=== PATIENT | female | born 1990 | race Caucasian/White ===

== ENCOUNTER 2021-03-30 08:44 | Emergency (ER) | payer OTHER, SELFPAY ==
[2021-03-30 08:50] VITALS: BP 147/79; PULSE 76; RESP 18; TEMP 36.6; O2SAT 98; BMI 30.9
--- NOTE | 2021-03-30 09:04 | ED.EXTPRO ---
HPI - Extremity Problem General Chief complaint: Extremity Injury, Upper Stated complaint: HAND PAIN Time Seen by Provider: 03/30/21 09:01 Source: patient Mode of arrival: ambulatory Limitations: no limitations History of Present Illness HPI Narrative: 30 y/o female presenting with 1 week of worsening right wrist and hand pain. She denies injury or trauma. 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 She reports shooting type pains in her hand and wrist that radiate up into her forearm. The pain makes it hard for her to grasp and make a fist. She has not been taking any medications for the pain. MD Complaint: extremity pain Onset (ago): week(s) (1) Pain Consistency: constant Location: right and upper extremity Severity scale (1-10): 8 Quality: sharp Radiation: proximal Relieving factors: immobilization and rest Exacerbating factors: range of motion and palpation Associated symptoms: denies other symptoms Related Data Previous Rx's Medication Instructions Recorded naproxen 500 mg PO BID PRN #20 tab 03/30/21 Allergies Allergy/AdvReac Type Severity Reaction Status Date / Time No Known Allergies Allergy Unknown Unverified 06/20/20 17:23 Review of Systems Review of Systems: Constitutional: No Fever, No Chills Cardiovascular: No Chest Pain, No SOB, No Edema Musculoskeletal: + joint pain, No Myalgias Skin: No Skin Lesions, No rash Neuro: + Weakness, No Numbness, No Dizziness, No Headache Heme/Lymph: No Bruising, No Lymphadenopathy PMFSH Past Medical History Attestation statement: The following information was validated with the patient. Social History Social History Advance Directives: No Advance Directives Information Provided: No Patient : No Physical Exam Vital Signs: Vital Signs: Last Vital Signs Temp 97.9 F 03/30/21 08:50 Pulse 76 03/30/21 08:50 Resp 17 03/30/21 09:27 BP 147/79 H 03/30/21 08:50 Pulse Ox 98 03/30/21 08:50 Body Mass Index 30.9 Appearance: Alert. Oriented X3. No acute distress. HEENT: normal inspection CVS: Normal heart rate and rhythm. Pulses normal. Respiratory: No respiratory distress. Skin: Skin warm and dry. Normal skin color. Normal skin turgor. No rashes. Extremities: right wrist and hand with normal inspection, dorsal hand with tenderness medially, pain with movement of the wrist and hand grasp, sensation intact. 2+ radial pulse. Neuro: Oriented X 3. No motor deficit. No sensory deficit. Course Course Course Narrative: 30 y/o female presenting with right hand and wrist pain no trauma but overuse with repetitive movements on her job. Her symptoms are most likely related to carpal tunnel syndrome. Will place in cock-up wrist velco splint, treat with NSAIDS and refer to Hand for possible injections vs surgical decompression if no improvement with conservative treatments. Patient encouraged to rest, ice and elevate her hand. Stable for d/c home with outpatient follow up. Discharge Plan Discharge Clinical Impression: Acute wrist pain Qualifiers: Laterality: right Qualified Code(s): M25.531 - Pain in right wrist Patient Disposition: Home, Self-Care Instructions: Wrist Injury (ED) Additional Instructions: Wear the wrist splint as needed for comfort and support. Recommend wearing it every night when you sleep Take the prescribed anti-inflammatory pain medication as needed Elevate your hand when possible and use ice several times per day Rest and limit use of your right hand Recommend following up with Hand Specialist to see if you are a candidate for steroid injections or surgical treatment Prescriptions: New naproxen 500 mg tablet 500 mg PO BID PRN (Reason: pain) Qty: 20 RF: 0 Referrals: Saniya Moody MD [Physician] - 1 week (right wrist pain) Stand Alone Forms: Work/School Release Interventions: ED Discharge Assessment Last Done: 03/30/21 09:30 Discharge Date/Time: 03/30/21 09:30
[2021-03-30] MEDS: Ketorolac Tromethamine 30 MG/ML VIAL IM (09:21)
[2021-03-30 09:27] VITALS: RESP 17
== END 2021-03-30 09:30 | disposition home or self-care (01) ==
PROVIDERS: Emergency Provider Emergency Medicine
DX: M25.531 Pain in right wrist (principal); M79.641 Pain in right hand
CPT/HCPCS: 96372; 99284; J1885

== ENCOUNTER 2021-04-16 08:05 | Outpatient (REF) | payer OTHER, SELFPAY | END 2021-04-16 08:06 | disposition home or self-care (01) | LOC: HO.HOSX 08:05 | PROVIDERS: Visit Provider Physician Assistant | DX: Z13.89 Encounter for screening for other disorder (principal) ==

== ENCOUNTER 2021-04-25 08:05 | Outpatient (REF) | payer OTHER, SELFPAY ==
--- NOTE | ~2021-04-25 | XR_ITS ---
EXAMINATION: XR WRIST, RIGHT CLINICAL INFORMATION: Pain in right wrist. COMPARISON: None TECHNIQUE: PA, lateral, and oblique views of the right wrist. FINDINGS: The bones and soft tissues are normal. No fracture. Alignment is anatomic with normal joint spaces. No erosions or abnormal soft tissue calcifications. XR/XR wrist RT min 3V IMPRESSION: Unremarkable right wrist exam.
== END 2021-04-25 08:06 | disposition home or self-care (01) ==
LOC: HO.HOSX 08:05
PROVIDERS: Visit Provider Physician Assistant
DX: M25.531 Pain in right wrist (principal)
CPT/HCPCS: 73110; 99202

== ENCOUNTER 2021-09-07 18:47 | Emergency (ER) | payer OTHER, SELFPAY ==
[2021-09-07 20:23] VITALS: BP 131/67; PULSE 77; RESP 16; TEMP 35.9; O2SAT 100; BMI 32.8
[2021-09-07 22:00] VITALS: BP 132/70; PULSE 80; RESP 16; TEMP 36.9; O2SAT 98
--- NOTE | 2021-09-07 22:26 | ED_ITS ---
HPI - Back Pain/Injury General Chief Complaint: Back Pain/Injury Stated Complaint: Back pain Time Seen by Provider: 09/07/21 21:40 Source: patient Mode of arrival: ambulatory Limitations: no limitations History of Present Illness HPI Narrative: 31-year-old female who presents emergency department for evaluation of lower back pain with pain radiating down to her right leg. Patient states that the pain started approximately 5 days prior. She states that she was in her car for about a [address] she got out of her car she had pain across her lower back. She states since that time she has had a constant pain across her lower back which she describes as a pulling sensation. The pain is 8/10 at its worst. The pain does radiate down her right leg all the way to her foot. She denies numbness or weakness of her right leg. She denies loss of bowel or bladder control. She denied fever or chills. The patient states she has been taking Tylenol for the pain without relief. Related Data Previous Rx's Medication Instructions Recorded naproxen 500 mg tablet 500 mg PO BID PRN #20 tab 03/30/21 cyclobenzaprine 10 mg tablet 10 mg PO TID PRN #20 tab 09/07/21 prednisone 20 mg tablet 60 mg PO DAILY 7 Days #21 tab 09/07/21 Allergies Allergy/AdvReac Type Severity Reaction Status Date / Time No Known Allergies Allergy Unknown Unverified 06/20/20 17:23 Review of Systems Review of Systems: Yes all other systems are reviewed and are negative [facility] Past Medical History [facility] Narrative: Social history: The patient is a former smoker, she stop smoking 1 year prior. She smoked 1/2 pack cigarettes per day times 15 years. She denies alcohol use. She denies drug use. 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 Physical Exam Vital Signs: Vital Signs: Last Vital Signs Temp 98.4 F 09/07/21 22:00 Pulse 80 09/07/21 22:00 Resp 16 09/07/21 22:00 BP 132/70 09/07/21 22:00 Pulse Ox 98 09/07/21 22:00 BMI result Body Mass Index 32.8 Const: General: cooperative and no acute distress Orientation/conscious ness: oriented to person and oriented to place Limitations: no limitations HENMT: Head: Yes normal to inspection, Yes normocephalic and Yes atraumatic Ears: external ears normal General nose exam: Normal external nose present Face and sinus: Yes normal facial exam Mouth: Normal oral and palatal mucosa present Throat: Yes posterior oropharynx normal Eyes: General: appearance normal, both eyes and all related structures Pupils: Equal, round and reactive pupils present Neck: Neck: Yes normal visual inspection, Yes no lymphadenopathy, Yes trachea midline and Yes supple Chest: Chest palpation & inspection: normal inspection of the chest and normal palpation of entire chest wall Resp: Effort & Inspection: normal respiratory effort and able to speak in complete sentences Auscultation: clear to auscultation bilaterally Cardio: Rate: regular rate Rhythm: regular rhythm Heart sounds: S1 normal heart sound present, S2 normal heart sound present and no murmurs GI: Inspection: Yes normal to inspection Palpation (GI): Soft to palpation, nontender and no guarding Auscultation: normal bowel sounds Back/Spine/Pelvis: Other: Patient has tenderness with palpation of her paraspinal muscles in the lumbar sacral region, there is no vertebral spinal tenderness, she has negative straight leg raises bilaterally, she has normal strength in her lower extremities, she is able to walk without any difficulty, she is not able to bend secondary to spasm of her lower back muscles. Skin: General skin exam: no rashes or lesions noted Neuro: General: oriented to person and oriented to place Cranial nerves: Yes CN's II-XII intact bilaterally and Yes Equal, round and reactive pupils p resent Cognition (Neuro): normal cognition Motor exam (neuro): 5/5 motor strength present throughout Extrem: General: Yes normal to inspection Psych: Appearance: grossly normal Speech and movement: Normal speech and movement present Affect: normal affect Attitude: cooperative Thought process: Normal thought process present Thought content: Normal thought content present Course Course Course Narrative: 31-year-old female who presents emergency department for evaluation of lower back pain x5 days with pain that radiates down her right leg. She has been taking Tylenol without relief. Physical examination revealed normal vital signs. The patient's exam did reveal tenderness palpation of the paraspinal muscles in lumbar sacral area bilaterally with a nonfocal neurologic exam. The patient's presentation is consistent with lumbar strain with radiculopathy. Patient was treated with prednisone 60 mg orally and Tylenol 975 mg orally. She was started on prednisone 60 mg once a day for 1 week, cyclobenzaprine 10 mg 3 times a day for pain and spasm and Tylenol 975 mg every 6 hours as needed for pain. She was given printed and verbal instructions and discharged home. Discharge Plan Discharge Clinical Impression: Lumbar radiculopathy Strain of lumbar region Qualifiers: Encounter type: initial encounter Qualified Code(s): S39.012A - Strain of muscle, fascia and tendon of lower back, initial encounter Patient Disposition: Home, Self-Care Instructions: Lumbar Radiculopathy (ED) Additional Instructions: Back Pain Discharge Instructions: Prednisone 20 mg pills, 3 pills once a day for 7 days. This is a strong anti- inflammatory pain medication. Do not take any [id number] anti- inflammatory pain medications while you taking prednisone such as ibuprofen, Motrin, Advil, Aleve, naproxen. Take Tylenol (acetaminophen) 500 mg pills, 2 pills every 6 hours as needed for pain. Take Flexeril (cyclobenzaprine) 10 mg pills, 1 pill every 8 hours as needed for pain or muscle spasm. This is a prescription medication. This medication will make you sleepy, therefore do not drive or work while taking this medication. Apply ice for 15 minutes to the area that hurts on your back, then apply a heating a pad on low for 15 minutes. Do this 4-6 times a day to help reduce the pain in your back. Continue with normal activities as tolerated since staying in bed and not moving around will make your pain worse. Please return to the Emergency Department or see your doctor immediately if your symptoms get worse or if you develop any new symptoms that are concerning you. Follow up with your doctor in 2 day. Please read the other printed discharge instructions on back pain. Prescriptions: New cyclobenzaprine 10 mg tablet 10 mg PO TID PRN (Reason: muscle pain or spasm) Qty: 20 RF: 0 prednisone 20 mg tablet 60 mg PO DAILY 7 Days Qty: 21 RF: 0 No Action naproxen 500 mg tablet 500 mg PO BID PRN (Reason: pain) Qty: 20 RF: 0
[2021-09-07] MEDS: predniSONE 20 MG TABLET 60 MG PO (23:03)
[2021-09-07] MEDS: Acetaminophen 325 MG TABLET 975 MG PO (23:03)
--- NOTE | 2021-09-07 23:08 | PC.NURSE ---
medicated per Mar. Reviewed discharge instruction. Education on medication. Referral sheet for primary care providers.
== END 2021-09-07 23:10 | disposition home or self-care (01) ==
PROVIDERS: Emergency Provider Emergency Medicine Emergency Medical Services
DX: S39.012A Strain of muscle, fascia and tendon of lower back, initial encounter (principal); X58.XXXA Exposure to other specified factors, initial encounter; Y93.9 Activity, unspecified; Y92.9 Unspecified place or not applicable; Y99.9 Unspecified external cause status
CPT/HCPCS: 99282; 99283; 99284

== ENCOUNTER 2024-05-18 01:06 | Inpatient (IN) | payer OTHER, SELFPAY ==
[2024-05-18 01:18] VITALS: BP 137/83; PULSE 94; RESP 16; TEMP 36.2; O2SAT 98; BMI 33.3
[2024-05-18 01:20] VITALS: BP 137/83; PULSE 94; RESP 18; TEMP 36.2; O2SAT 94
[2024-05-18 01:57] LABS: Appearance Urine Clear; Color Urine Yellow; Glucose Urine UA Negative (Negative); Leukocyte Esterase Urine Negative (Negative); Nitrite Urine Negative (Negative); Urine Blood Negative (Negative); Urine Ketones Negative (Negative); Urine Protein Negative (Neg-Trace)
[2024-05-18 01:59] LABS: UPreg QC Valid YES; Urine Pregnancy NEGATIVE (NEGATIVE)
[2024-05-18 02:02] LABS: Bacteria Urine None Seen (None Seen); Hyaline Casts Urine 0-2 /LPF (0-2); RBC Urine 0-2 /HPF (0-2); Squamous Epithelial Cell Urine 0-2 /HPF (0-2); WBC Urine 0-5 /HPF (0-5)
[2024-05-18 02:20] LABS: Amphetamine Screen Urine Not Detected (Not Detect); Barbiturates, Urine Not Detected (Not Detect); Benzodiazepines Screen Urine Not Detected (Not Detect); Buprenorphine Scr Not Detected (Not Detect); Cannabinoid Screen Urine POSITIVE (Not Detect); Cocaine Screen Urine Not Detected (Not Detect); Fentanyl, urine Not Detected (Not Detect); Methadone Screen, Urine Not Detected (Not Detect); Opiate Screen Urine Not Detected (Not Detect); Oxycodone Screen Urine Not Detected (Not Detect); Phencyclidine Screen Urine Not Detected (Not Detect)
--- NOTE | 2024-05-18 03:55 | ED.PSYCH ---
HPI - Psych General Chief Complaint: Psychiatric Symptoms Stated Complaint: section 12 si Time Seen by Provider: 05/18/24 03:48 Source: EMS Mode of arrival: EMS Limitations: other History of Present Illness ED Provider: Dr. Leyla Tony HPI Narrative: Patient comes to the emergency room by ambulance. Seems that somebody called [facility], they picked up the patient and brought her to the emergency room. Patient is calm but not answering any questions. Patient states that somebody brought her here, states she wants her belongings and her pillow. Patient agreeable to get blood work. Otherwise patient not offering any more information. Patient states that she wants to talk to somebody from the care team, did not disclose any further information Related Data Previous Rx's ?Medication ?Instructions ?Recorded naproxen 500 mg tablet 500 mg PO BID PRN pain #20 tabs 03/30/21 cyclobenzaprine 10 mg tablet 10 mg PO TID PRN muscle pain or 09/07/21 spasm #20 tabs prednisone 20 mg tablet 60 mg (3 x 20 mg) PO DAILY 7 days 09/07/21 #21 tabs Allergies Allergy/AdvReac Type Severity Reaction Status Date / Time No Known Allergies Allergy Unknown Unverified 05/18/24 01:22 Review of Systems Review of Systems: Yes Other [facility] Social History Social History Patient Tobacco Use Status: Never used Tobacco Advance Directives: No Advance Directives Information Provided: No Do you have a plan to hurt others: No Plan Current occupational status: employed Current occupation: rt handed/ order packer in factory Physical Exam Vital Signs: Vital Signs: Last Vital Signs Temp 97.1 F 05/18/24 01:20 Pulse 94 05/18/24 01:20 Resp 18 05/18/24 01:20 BP 137/83 05/18/24 01:20 Pulse Ox 94 05/18/24 01:20 O2 Del Method Room Air 05/18/24 01:20 BMI result Body Mass Index 33.3 Const: Other: Appearance: Alert. No acute distress, sitting in the corner of her room on the floor Eyes: Pupils equal, round and reactive to light. ENT: Pharynx normal. Neck: Normal inspection. Neck supple. No lymph nodes noted. No crepitus CVS: Normal heart rate and rhythm. Pulses normal. Normal S1 and S2 Respiratory: No respiratory distress. Breath sounds normal. No Wheezing. No rales Abdomen: Soft and nontender. No rigidity. No distention. Skin: Skin warm and dry. Normal skin color. Normal skin turgor. Extremities: No lower extremity edema. No Lacerations. No Rash Neuro: Cranial nerves 2-12 grossly intact Psych: calm, flat affect, answering questions but not making much sense. Course Course Course Narrative: Patient agreeable blood work done. -patient was Section 12 in the community -physician observation started at 04:00 -care team consult pending Medical Decision Making Differential Diagnosis Differential Diagnoses: The differential diagnosis associated with the presentation includes (Anxiety, depression, polysubstance abuse) Admission/Observation Consideration of admission/observation: Escalation of care including admission/observation considered (Patient is under physician observation waiting to be seen by the care team.) Lab Data Labs: Lab Results 05/18/24 Range/Units 01:49 Urine Color Yellow Urine Appearance Clear Urine pH 6.0 (5.0-9.0) Ur Specific [place] 1.020 (1.005-1.025) Urine Protein Negative (Neg-Trace) mg/dL Urine Glucose (UA) Negative (Negative) mg/dL Urine Ketones Negative (Negative) mg/dL Urine Blood Negative (Negative) Urine Nitrite Negative (Negative) Ur Leukocyte Esterase Negative (Negative) Urine RBC 0-2 (0-2) /HPF Urine WBC 0-5 (0-5) /HPF Ur Squamous Epith Cells 0-2 (0-2) /HPF Urine Bacteria None Seen (None Seen) Hyaline Casts 0-2 (0-2) /LPF Urine Test NEGATIVE (NEGATIVE) Urine Opiates Screen Not Detected (Not Detect) Ur Buprenorphine Scrn Not Detected (Not Detect) ng/mL Ur Oxycodone Screen Not Detected (Not Detect) ng/mL Urine Methadone Screen Not Detected (Not Detect) ng/mL Urine Fentanyl Screen Not Detected (Not Detect) Ur Barbiturates Screen Not Detected (Not Detect) Ur Phencyclidine Scrn Not Detected (Not Detect) Ur Amphetamines Screen Not Detected (Not Detect) U Benzodiazepines Scrn Not Detected (Not Detect) Urine Cocaine Screen Not Detected (Not Detect) U Marijuana (THC) Screen POSITIVE H (Not Detect) Discharge Plan Discharge Clinical Impression: Flat affect Patient Disposition: Still a Patient Prescriptions: No Action naproxen 500 mg tablet 500 mg PO BID PRN (Reason: pain) Qty: 20 0RF cyclobenzaprine 10 mg tablet 10 mg PO TID PRN (Reason: muscle pain or spasm) Qty: 20 0RF prednisone 20 mg tablet 60 mg PO DAILY 7 Days Qty: 21 0RF Interventions: Gosper-Suicide Risk Severity Scale Last Done: 05/18/24 02:46 Print Language: Guinean
[2024-05-18 04:06] LABS: MANUAL DIFF FLAG NO
[2024-05-18 04:08] LABS: Basophils Absolute Auto 0.1 X10*3/uL (0.0-0.2); Basophils Percent Auto 0.5 % (0-2); Eosinophils Absolute Auto 0.1 X10*3/uL (0.0-0.4); Eosinophils Percent Auto 1.2 % (0-4); Hematocrit 39.9 % (37.0-47.0); Hemoglobin 13.5 g/dl (12.0-16.0); Imm Gran Abs Auto 0.03 X10*3/uL (0.00-0.03); Imm Gran Pct Auto 0.3 % (0.0-0.4); Lymphocytes Absolute Auto 3.5 X10*3/uL (1.2-4.9); Lymphocytes Percent Auto 33.6 % (20-40); Mean Corpuscular HGB Conc 33.8 g/dl (31.0-35.0); Mean Corpuscular Hemoglobin 26.9 pg (27.0-33.0); Mean Corpuscular Volume 79.5 fL (80.0-98.0); Mean Platelet Volume 12.5 fL (9.4-12.3); Monocytes Absolute Auto 0.7 X10*3/uL (0.1-1.2); Monocytes Percent Auto 6.4 % (2-11); Neutrophils Absolute Auto 6.1 x10*3/uL (2.0-8.3); Platelet Count 254 X10*3/uL (160-400); Red Blood Count 5.02 X10*6/uL (4.20-5.50); Red Cell Distribution Width 12.7 % (11.0-16.0); White Blood Count 10.5 X10*3/uL (4.8-10.8)
[2024-05-18 04:32] LABS: Alanine Aminotransferase 14 U/L (0-31); Albumin Level 4.4 g/dL (3.5-5.0); Alkaline Phosphatase 44 U/L (39-117); Anion Gap 11 (12-20); Aspartate Amino Transferase 16 U/L (5-31); Bilirubin Direct 0.1 mg/dL (0.0-0.5); Bilirubin Total 0.3 mg/dL (0.0-1.0); Blood Urea Nitrogen 11 mg/dL (9-16); Calcium 9.2 mg/dL (8.4-10.2); Carbon Dioxide 26 mmol/L (22-29); Chloride 106 mmol/L (96-108); Creatinine Clr Calc Pharmacy 95.8; Estimated Glomerular Filt Rate > 60; Glucose Random 111 mg/dL (60-115); Potassium 4.3 mmol/L (3.3-5.1); Sodium 139 mmol/L (135-145); Total Protein 7.7 g/dL (6.5-8.0)
[2024-05-18 04:49] LABS: Ethanol < 10 mg/dL; HCG Quantitative < 2 mIU/mL
--- NOTE | 2024-05-18 05:15 | PC.NURSE ---
patient redirected and asked to get down off of her bed which she recently began standing on. i encouraged her that her ability to follow directions would reflect well on her when people came to speak to her this morning. patient responded she wanted her pillow from home which i told her could not be given because of contraband and insects. patient did not comply.
--- NOTE | 2024-05-18 05:52 | PC.NURSE ---
patient soon thereafter being redirected in her room later stood on desk and was redirectd down which she did somewhat readily. she thereafter went into rest room and seemingly washed herself for a few minutes and soon thereafter was found naked in bathroom provided new clothing and shortly thereafter went back to room and stood in corner.
--- NOTE | 2024-05-18 08:29 | PC.NURSE ---
patient sitting on floor in room, seen by the care team. cooperative and responding to questions at this time.
[2024-05-18 09:01] VITALS: BP 148/87; PULSE 107; RESP 18; TEMP 36.3; O2SAT 99
--- NOTE | 2024-05-18 10:00 | PC.NURSE ---
attempted to complete med rec for patient, states she does not take any medications and does not have a doctor/pharmacy at this time.
--- NOTE | 2024-05-18 13:37 | PC.NURSE ---
Pt ambulatory with a steady gait, utilizing shower at this time.
--- NOTE | 2024-05-18 15:24 | PC.NURSE ---
patient requesting to speak with care team. this RN attempting to explain patient is a section 12 and cannot leave, patient states that she does not feel she is receiving any care at this time. offered medication to help her calm down, patient refused. asking to be transferred to different hospital. remains in room with visitors at this time.
--- NOTE | 2024-05-18 16:55 | PC.NURSE ---
care team meeting with patient at this time, report given to m3
[2024-05-18 20:30] VITALS: BP 140/86; PULSE 66; RESP 16; TEMP 36.4; O2SAT 100
[2024-05-18 22:43] VITALS: BMI 29.5
--- NOTE | 2024-05-19 00:51 | PC.ADMIT ---
MOMO IS A 34 Y/O FEMALE WHO ARRIVED @ THE ED VIA AMBULANCE ON A SECTION 12 BY POLICE POST REPORTING SI TO CRISIS. SHE HAS A HX OF IPLOC AND SUICIDE ATTEMPTS. DIAGNOSIS BIPOLAR D/O. ADMITTED ON A 12B TO UNIT VIA W/C @ 2014. RECENT STRESSES/LIFE CHANGES INCLUDES UNEMPLOYMENT AND HOMELESSNESS. TOX SCREEN POSITIVE FOR MARIJUANA. MOMO IS A/O X 3, AD-LISE WITH STEADY GAIT, NO FALL HX, PRESENTED CALM BUT IRRITATED THAT SHE IS ON THE UNIT, VERBALIZED THAT SHE WAS LIED TO AND WANTS TO BE LEAVE. I'M NOT ACCEPTING NO TYPE OF CARE FROM THIS HOSPITAL. I'M NOT GONNA HURT MYSELF, I'M NOT GONNA HURT ANYBODY. I TOLD THEM I WANT OP SERVICES. SOMEONE TO TALK TOO INITIALLY DECLINED SKIN/SAFETY ASSESSMENT, SO SHE WAS PLACED ON 1:1, REQUESTED TO TAKE SHOWER AND ASSESSMENT COMPLETED AT THAT TIME, ORDER CHANGED TO 5 MIN ULB. DECLINED TO COMPLETE ADMISSION ASSESSMENT, I'M NOT SIGNING NOTHING. I'M NOT DOING NO TREATMENT HERE. VERBALIZED SHE IS SAFE WITH NO THOUGHTS OF SELF HARM, DENIED [facility]. NO PRESCRIBED HS MEDS, DECLINED SNACKS/FLUID. PATIENT PLACED HER MATTRESS ON THE FLOOR IN THE CORNER NEAR ASSIGNED ROOM DOOR, LAYING DOWN WITH COVERS OVER HER HEAD.
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
[2024-05-19 19:37] VITALS: BP 118/57; PULSE 68; RESP 18; TEMP 37; O2SAT 99
--- NOTE | 2024-05-20 17:28 | HO.PSYCHPN ---
Subjective Subjective Date of Service: 05/20/24 Reason For Visit: section 12 si Interim History: stated she had no questions or complaints for MD and did not wish to speak. per staff, 12b up 05/23. flat, withdrawn, guarded. ate 50% of her lunch. no breakfast. uncooperative. not engaging. Mental Status Exam Mental Status Exam Narrative: under covers on mattress on floor. not cooperative. no PMA/PMR. speech soft, terse. thoughts linear and logical. affect constricted, normo-intense, non-labile. mood, SI/HI/AVH not expressed. Diagnostics Vital Signs (24Hr): Vital Signs - 24 hr 05/19/24 19:37 Temperature 98.6 F Pulse Rate 68 Respiratory Rate 18 Blood Pressure 118/57 L Pulse Oximetry 99 Oxygen Delivery Method Room Air BMI result Body Mass Index 29.5 Labs 05/18/24 04:00 05/18/24 04:00 Medications Medications Current Medications Acetaminophen (Acetaminophen 325 Mg Tablet) 650 mg PO Q6H PRN PRN Reason: Headache/Pain Mild Scale (1-3) Al Hydroxide/Mg Hydroxide (Magnesium Hydrox/Alum Hydrox 30 Ml Oral.Susp) 30 ml PO Q6H PRN PRN Reason: Heartburn/Nausea Hydroxyzine HCl (Hydroxyzine Hcl 25 Mg Tablet) 25 mg PO Q6H PRN PRN Reason: Anxiety Magnesium Hydroxide (Milk Of Magnesia 30 Ml Oral.Susp) 30 ml PO DAILY PRN PRN Reason: Constipation Nicotine Polacrilex (Nicotine Polacrilex 2 Mg Gum) 4 mg BUCCAL Q2H PRN PRN Reason: Nicotine Cravings Quetiapine Fumarate (Quetiapine Fumarate 25 Mg Tablet) 25 mg PO TID PRN PRN Reason: agitation, anxiety Trazodone HCl (Trazodone Hcl 50 Mg Tablet) 50 mg PO BEDTIME MRX1 PRN PRN Reason: Insomnia Allergies Allergies Allergy/AdvReac Type Severity Reaction Status Date / Time No Known Allergies Allergy Unknown Verified 05/18/24 15:37 Assessment & Plan Assessment & Plan (1) Bipolar disorder: Status: Acute Code(s): F31.9 - Bipolar disorder, unspecified (2) PTSD (post-traumatic stress disorder): Status: Acute Code(s): F43.10 - Post-traumatic stress disorder, unspecified (3) Cannabis use disorder: Status: Acute Code(s): F12.90 - Cannabis use, unspecified, uncomplicated Plan 34 yo female, history of bipolar disorder, PTSD, cannabis use presents with crisis, police, on Section 12 for SI. Pt reports she has needed to leave [place] due to losing 2 jobs, her apartment and is about to lose her car. She reports intrusive thoughts of a trauma that occurred which have effected her functioning and possibly caused her decline in functioning and resulting losses. She is fearful she will lose her daughter if they need to live out of her car and wanted help finding resources for housing and treatment. Today she presents as feeling overwhelmed, without options and not knowing what to do. Case review with Ana Luisa Osborn [facility] who is assigned as pt's social work case manager. Plan: Admit, CV, 15 minute checks Pt declines medications, however... ---Seroquel 25 mg po tid prn anxiety, agitation Team will refer to [facility] for long term/work resources and DTA for emergency family long term resources. They will also refer for OP therapy. Encouraged pt to utilize milieu for a brief period to strengthen coping skills, assist her in organization and planning skills and process losses, trauma response, SI and clarify the future planning of her care. Family has encouraged pt to utilize services and gather resources at this time. 05/20: pt declines to engage with MD. no notable events or behaviors per staff. continue present mgmt. Reason for continued inpatient stay Substantial Risk for: harm to self Time Spent With Patient Time: Total time managing care of this patient today ____ minutes.
[2024-05-20 21:48] VITALS: RESP 16
--- NOTE | 2024-05-21 17:00 | P.PNPSI_ITS ---
Subjective Subjective Date of Service: 05/21/24 Reason For Visit: section 12 si Interim History: what can i do to help you while you are in the hospital? you can stop asking me that. the only thing you can do to help me is let me go. per staff, not engaging. wants to D/C. 12b up wednesday. Mental Status Exam Mental Status Exam Narrative: sitting on bed looking out window. not cooperative. no PMA/PMR. speech soft, terse. thoughts linear and logical. affect constricted, normo-intense, non- labile. mood, SI/HI/AVH not expressed. Diagnostics Vital Signs (24Hr): Vital Signs - 24 hr 05/20/24 21:48 Respiratory Rate 16 BMI result Body Mass Index 29.5 Labs 05/18/24 04:00 05/18/24 04:00 Medications Medications Current Medications Acetaminophen (Acetaminophen 325 Mg Tablet) 650 mg PO Q6H PRN PRN Reason: Headache/Pain Mild Scale (1-3) Al Hydroxide/Mg Hydroxide (Magnesium Hydrox/Alum Hydrox 30 Ml Oral.Susp) 30 ml PO Q6H PRN PRN Reason: Heartburn/Nausea Hydroxyzine HCl (Hydroxyzine Hcl 25 Mg Tablet) 25 mg PO Q6H PRN PRN Reason: Anxiety Magnesium Hydroxide (Milk Of Magnesia 30 Ml Oral.Susp) 30 ml PO DAILY PRN PRN Reason: Constipation Nicotine Polacrilex (Nicotine Polacrilex 2 Mg Gum) 4 mg BUCCAL Q2H PRN PRN Reason: Nicotine Cravings Quetiapine Fumarate (Quetiapine Fumarate 25 Mg Tablet) 25 mg PO TID PRN PRN Reason: agitation, anxiety Trazodone HCl (Trazodone Hcl 50 Mg Tablet) 50 mg PO BEDTIME MRX1 PRN PRN Reason: Insomnia Allergies Allergies Allergy/AdvReac Type Severity Reaction Status Date / Time No Known Allergies Allergy Unknown Verified 05/18/24 15:37 Assessment & Plan Assessment & Plan (1) Bipolar disorder: Status: Acute Code(s): F31.9 - Bipolar disorder, unspecified (2) PTSD (post-traumatic stress disorder): Status: Acute Code(s): F43.10 - Post-traumatic stress disorder, unspecified (3) Cannabis use disorder: Status: Acute Code(s): F12.90 - Cannabis use, unspecified, uncomplicated Plan 34 yo female, history of bipolar disorder, PTSD, cannabis use presents with crisis, police, on Section 12 for SI. Pt reports she has needed to leave [place] due to losing 2 jobs, her apartment and is about to lose her car. She reports intrusive thoughts of a trauma that occurred which have effected her functioning and possibly caused her decline in functioning and resulting losses. She is fearful she will lose her daughter if they need to live out of her car and wanted help finding resources for housing and treatment. Today she presents as feeling overwhelmed, without options and not knowing what to do. Case review with Ana Luisa Osborn [facility] who is assigned as pt's social work assistant. Plan: Admit, CV, 15 minute checks Pt declines medications, however... ---Seroquel 25 mg po tid prn anxiety, agitation Team will refer to [facility] for half-way/work resources and DTA for emergency family half-way resources. They will also refer for OP therapy. Encouraged pt to utilize milieu for a brief period to strengthen coping skills, assist her in organization and planning skills and process losses, trauma response, SI and clarify the future planning of her care. Family has encouraged pt to utilize services and gather resources at this time. 05/20: pt declines to engage with MD. no notable events or behaviors per staff. continue present mgmt. 05/21: continues to decline to engage in any sort of treatment. no notable events. requesting discharge. Reason for continued inpatient stay Substantial Risk for: harm to self and inability to function Time Spent With Patient Time: Total time managing care of this patient today ____ minutes.
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
== END 2024-05-22 11:33 | disposition home or self-care (01) | DRG 753 ==
LOC: HO.ED 04:01 → HO.PADLT16 18:40
PROVIDERS: Internal Medicine; Admitting Provider Psychiatry & Neurology Psychiatry; Emergency Provider Emergency Medicine; Responsible Provider Registered Nurse; Visit Provider Psychiatry & Neurology Psychiatry
DX: F31.9 Bipolar disorder, unspecified (principal); R45.850 Homicidal ideations; F43.10 Post-traumatic stress disorder, unspecified; Z91.51 Personal history of suicidal behavior
CPT/HCPCS: 36415; 80048; 80076; 80307; 81001; 81025; 84702; 85025; 99285; S9485

== ENCOUNTER → 2024-05-18 16:04 | Outpatient (BNV) | payer OTHER, SELFPAY | PROVIDERS: Admitting Provider Psychiatry & Neurology Psychiatry; Emergency Provider Emergency Medicine; Visit Provider Clinical Nurse Specialist Psychiatric/Mental Health, Adult | DX: F31.4 Bipolar disorder, current episode depressed, severe, without psychotic features (principal); F43.11 Post-traumatic stress disorder, acute; F12.90 Cannabis use, unspecified, uncomplicated | CPT/HCPCS: 99231; 99232 ==